=== PATIENT | male | born 1990 | race African-American/Black ===

== ENCOUNTER 2018-05-24 09:20 | Emergency (ER) | payer MEDICAID ==
[~2018-05-24] VITALS: Ht 170.2 cm; Wt 59.0 kg
[2018-05-24] MEDS ORDERED: KETOROLAC 60MG/2ML VIAL IM ONE (11:00)
[2018-05-24 12:32] VITALS: BP 128/75
== END 2018-05-24 12:33 | disposition home or self-care (01) ==
LOC: ER 09:20
DX: R51 Headache (principal); F17.200 Nicotine dependence, unspecified, uncomplicated; Y04.0XXA Assault by unarmed brawl or fight, initial encounter
CPT/HCPCS: 70486; 96372; 99284; J1885; Z7610